=== PATIENT | male | born 1985 | race Caucasian/White ===

== ENCOUNTER 2019-05-09 01:48 | Emergency (ER) | payer OTHER ==
[~2019-05-09] VITALS: Ht 170.2 cm; Wt 74.8 kg
[~2019-05-09 01:48] MED LIST: BACTRIM DS TAB1 EACH PO; HYDROCODON-ACE1 EAC7 PO; NOHOMEMEDICATIONS; PREDNISONE 10 M10 MG PO
[2019-05-09 03:56] VITALS: BP 125/56
== END 2019-05-09 03:59 | disposition home or self-care (01) ==
LOC: M.ERS 01:48
DX: S01.81XA Laceration without foreign body of other part of head, initial encounter (principal); F17.210 Nicotine dependence, cigarettes, uncomplicated; Y08.89XA Assault by other specified means, initial encounter; Y93.89 Activity, other specified; Y92.098 Other place in other non-institutional residence as the place of occurrence of the external cause; Y99.8 Other external cause status

== ENCOUNTER 2020-10-10 03:05 | Emergency (ER) | payer OTHER ==
[~2020-10-10] VITALS: Ht 170.2 cm; Wt 77.1 kg
[2020-10-10 03:43] VITALS: BP 125/83
== END 2020-10-10 03:43 | disposition home or self-care (01) ==
LOC: M.ERS 03:05
DX: H92.01 Otalgia, right ear (principal)